=== PATIENT | male | born 1985 | race Caucasian/White ===

== ENCOUNTER 2017-04-20 22:34 | Emergency (ER) | payer BC ==
--- NOTE | 2017-04-21 00:07 | ERPHSYRPT ---
- History of Present Illness Time Seen by Provider: 04/21/17 00:00 Source: patient Exam Limitations: no limitations Patient Subjective Stated Complaint: Pt sts fever since Monday night with fever , dizziness, nausea. Sts decreased appetite. Took ibuprofen for COWAN approx 1800 tonight. Denies V/D. Sts COWAN is worst when he wakes up, able to control with ibuprofen at home. Pt drove self here. COWAN worse with lights. Triage Nursing Assessment: Pt alert, oriented, answers all questions appropriately. Skin p/w/d, resps non-labored. Pt ambulatory to tx room, steady gait noted. Lung sounds CTA bilat non-labored. ABD SNT x 4 quadrants, + bowel sounds noted. Heart RRR. Physician History: Pt. states fever for past 3 days, felt hot but does not know what temp. States he has been having fever, chills, headache, nausea, but no V/D, cough, sore throat, nasal congestion or ear ache. States feels achy "all the time," decrease energy and dizziness. Denies any recent exposure to any illnesses. 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 States takes Ibuprofen 800mg for symptoms. Timing/Duration: day(s) (3) Fever Severity: moderate Fever Therapy BIRTHING NURSE: Ibuprofen Associated Symptoms: headache, muscle aches, nausea/vomiting, weakness, No abdominal pain, No chest pain, No confusion, No cough, No rash, No shortness of breath, No sore throat, No stiff neck Allergies/Adverse Reactions: Sulfa (Sulfonamide Antibiotics) Allergy (Verified 04/20/17 23:49) Home Medications: Escitalopram Oxalate [Lexapro] 20 mg PO DAILY 04/20/17 [History] Testosterone Cypionate 200 mg IM Q14D 04/20/17 [History] Immunizations Up to Date: Yes - Review of Systems Constitutional: Chills, Fatigue, Malaise, Weakness Eyes: No Symptoms Ears, Nose, & Throat: No Symptoms Respiratory: No Cough, No Dyspnea Cardiac: No Chest Pain, No Edema, No Syncope Abdominal/Gastrointestinal: No Abdominal Pain, No Nausea, No Vomiting, No Diarrhea Genitourinary Symptoms: No Dysuria Musculoskeletal: Myalgias, No Back Pain, No Neck Pain Skin: No Rash Neurological: No Dizziness, No Focal Weakness, No Sensory Changes Psychological: No Symptoms Endocrine: No Symptoms All Other Systems: Reviewed and Negative - Past Medical History Pertinent Past Medical History: Yes Psycho-Social History: Depression Other Medical History: low testosterone - Past Surgical History Past Surgical History: Yes Other Surgical History: hemorrhoidectomy - Social History Smoking Status: Never smoker Exposure to second hand smoke: No Patient Lives Alone: Yes - Nursing Vital Signs Nursing Vital Signs: Initial Vital Signs Temperature 99.2 F 04/20/17 23:41 Pulse Rate 105 H 04/20/17 23:41 Respiratory Rate 16 04/20/17 23:41 Blood Pressure 126/77 04/20/17 23:41 O2 Sat by Pulse Oximetry 99 04/20/17 23:41 Pain Scale Pain Intensity 5 - Physical Exam General Appearance: no apparent distress, alert Eye Exam: PERRL/EOMI ENT Exam: normal ENT inspection, No pharyngeal erythema, No tonsillar exudate Neck Exam: supple, full range of motion, No meningismus Respiratory Exam: normal breath sounds, lungs clear, no respiratory distress Cardiovascular/Chest Exam: normal heart sounds, regular rate/rhythm, No murmur, No edema Gastrointestinal/Abdominal Exam: soft, non tender, no distention Extremity Exam: non-tender, normal range of motion, normal inspection, normal capillary refill Neurologic Exam: alert, oriented x 3, cooperative, beverage host II-XII nml as tested, normal mood/affect, sensation nml, No motor deficits Skin Exam: normal color, warm, dry, No rash SpO2: 97 Oxygen Delivery: Room Air - Course Nursing assessment & vital signs reviewed: Yes Ordered Tests: Active Orders 24 hr Category Date Time Status CHEST 2 VIEWS (PA AND LAT) Stat Exams 04/21/17 00:10 Taken BMP Stat Lab 04/21/17 00:45 Completed CBC W DIFF Stat Lab 04/21/17 00:45 Completed Manual Differential NC Stat Lab 04/21/17 00:45 Completed Medication Summary Discontinued Medications Generic Name Dose Route Start Last Admin Trade Name Freq PRN Reason Stop Dose Admin Acetaminophen 975 mg 04/21/17 00:09 04/21/17 00:16 Tylenol 325 Mg PO 04/21/17 00:10 975 mg STAT STA Administration Acetaminophen Confirm 04/21/17 00:15 Tylenol 325 Mg Administered 04/21/17 00:16 Dose 975 mg .ROUTE .[employer] Lab/Rad Data: Laboratory Result Diagrams 04/21/17 00:45 04/21/17 00:45 Laboratory Results 04/21/17 04/21/17 Range/Units 00:45 00:45 WBC 10.7 H (4.0-10.5) K/mm3 RBC 4.21 (4.1-5.6) M/mm3 Hgb 12.2 L (12.5-18.0) gm/dl Hct 36.5 L (42-50) % MCV 86.7 (78-100) fl MCH 28.9 (26-32) pg MCHC 33.4 (32-36) g/dl RDW 14.2 H (11.5-14.0) % Plt Count 136 L (150-450) K/mm3 MPV 9.9 H (6-9.5) fl Sodium 139 (136-145) mEq/L Potassium 3.8 (3.5-5.1) mEq/L Chloride 104 (98-107) mEq/L Carbon Dioxide 25.8 (21-32) mEq/L Anion Gap 13.1 (5-15) MEQ/L BUN 9 (9-20) mg/dL Creatinine 1.38 H (0.55-1.30) mg/dl Estimated GFR > 60 ML/MIN Glucose 103 (70-110) MG/DL Calcium 8.0 L (8.5-10.1) mg/dL - Progress Progress: improved Progress Note: 04/21/17 00:09 Pt. given Tylenol for fever Counseled pt/family regarding: diagnosis, rad results - Departure Time of Disposition: 01:15 Departure Disposition: Home Clinical Impression: Fever, Viral syndrome Condition: Stable Critical Care Time: No Referrals: LITA HAMEED NP [Primary Care Provider] - Instructions: Fever (Symptom) -- Adult Additional Instructions: May alternate Tylenol and Motrin for fever Return for worse fever, headache, vomiting or any problems
[2017-04-21] MEDS ORDERED: TYLENOL 325 MG PO STA (00:09)
[2017-04-21] MEDS ORDERED: TYLENOL 325 MG ONE (00:15)
[2017-04-21 00:52] LABS: Mean Cell Volume 86.7 fl (78-100); Mean Platelet Volume 9.9 fl (6-9.5); Platelet Count 136 K/mm3 (150-450); Red Blood Count 4.21 M/mm3 (4.1-5.6); Red Cell Distribution Width 14.2 % (11.5-14.0); White Blood Count 10.7 K/mm3 (4.0-10.5)
[2017-04-21 00:56] LABS: Mean Corpuscular Hemoglobin 28.9 pg (26-32)
[2017-04-21 01:01] VITALS: PULSE 90
[2017-04-21 01:07] LABS: ANION GAP 13.1 MEQ/L (5-15); BLOOD UREA NITROGEN 9 mg/dL (9-20); CHLORIDE 104 mEq/L (98-107); Carbon Dioxide 25.8 mEq/L (21-32); Glucose 103 MG/DL (70-110); Potassium 3.8 mEq/L (3.5-5.1); SODIUM 139 mEq/L (136-145)
[2017-04-21 01:23] VITALS: BP 113/73; O2SAT 98
[2017-04-21 02:19] LABS: Eosinophil 1 % (0.00-3.0); Platelet Estimate NORMAL (NORMAL); Total Cells Counted 100
--- NOTE | 2017-04-21 09:25 | XRAY ---
Indication: Fever. Comparison: None PA/lateral chest demonstrates normal heart, lungs, and bony thorax.
== END 2017-04-21 01:23 | disposition home or self-care (01) ==
LOC: ED 22:34
DX: R50.9 Fever, unspecified (principal); B34.9 Viral infection, unspecified
CPT/HCPCS: 36415; 71020; 80048; 85025; 87631; 99283; A9270-GY

== ENCOUNTER 2018-11-28 10:39 | Observation (INO) | payer BC ==
[2018-11-28] MEDS ORDERED: Pepcid 20 MG VIAL IV ONE ×2 (10:55→11:07)
[2018-11-28] MEDS ORDERED: Zofran 4 MG/2 ML VIAL IV ONE (10:55)
[2018-11-28] MEDS ORDERED: Sodium Chloride 0.9% 1000 ML 1,000 ML IV STA (10:55)
--- NOTE | 2018-11-28 11:02 | ERPHSYRPT ---
- History of Present Illness Time Seen by Provider: 11/28/18 10:55 Historian: patient Exam Limitations: no limitations Patient Subjective Stated Complaint: pain in upper epigastric region and on the left lateral side/back Triage Nursing Assessment: Pt states that for the past 1.5-2 weeks he has been having pain in his abdomen in the mid upper epigastric region and also on the left lateral side/back, last vomited on Monday, last BM this AM, bowel sounds heard in all 4 quadrants, pain with palpatation in upper quadrants and left lateral side, reports that he always has stomach issues, hx of kidney stones and reports stones are still in his kidneys, rates pain 09/13 at this time, last intake yesterday evening Physician History: Pt has been c/o constipation, upper abdominal pain nx 1.5-2 weeks, nauseated, but denies vomiting, he had a small, hard stool today, with a little bit blood ( blames hemorrhoids), no vomiting, urinary complaints, no cough, cold symptoms , fever, chills or other complaints. He went to [facility] today, but was sent here. Timing/Duration: week(s) (1.5-2) Activities at Onset: none Quality: fullness, pressure Abdominal Pain Onset Location: RUQ, LUQ, epigastric Pain Radiation: back Severity of Pain-Max: mild Severity of Pain-Current: mild Modifying Factors: Improves With: eating Associated Symptoms: loss of appetite, nausea Previous symptoms: no prior history Allergies/Adverse Reactions: Sulfa (Sulfonamide Antibiotics) Allergy (Verified 11/28/18 10:54) Home Medications: Escitalopram Oxalate [Lexapro] 20 mg PO DAILY 04/20/17 [History] - Review of Systems Constitutional: No Symptoms Ears, Nose, & Throat: No Symptoms Respiratory: No Symptoms Cardiac: No Symptoms Abdominal/Gastrointestinal: Abdominal Pain, Nausea, Constipation, No Hematemesis Genitourinary Symptoms: No Symptoms Skin: No Symptoms All Other Systems: Reviewed and Negative - Past Medical History Pertinent Past Medical History: Yes Psycho-Social History: Depression Other Medical History: low testosterone, kidney stones - Past Surgical History Past Surgical History: Yes Other Surgical History: hemorrhoidectomy - Social History Smoking Status: Never smoker Exposure to second hand smoke: No Drug Use: none Patient Lives Alone: Yes - Nursing Vital Signs Nursing Vital Signs: Initial Vital Signs Temperature 98.7 F 11/28/18 10:43 Pulse Rate 68 11/28/18 10:43 Respiratory Rate 16 11/28/18 10:43 Blood Pressure 142/89 11/28/18 10:43 O2 Sat by Pulse Oximetry 100 11/28/18 10:43 Pain Scale Pain Intensity 0 - Physical Exam General Appearance: no apparent distress Eye Exam: eyes nml inspection Ears, Nose, Throat Exam: normal ENT inspection, pharynx normal, moist mucous membranes Neck Exam: normal inspection, non-tender, supple, No mass Respiratory Exam: normal breath sounds, lungs clear Cardiovascular Exam: regular rate/rhythm, normal heart sounds, normal peripheral pulses, No murmur Gastrointestinal/Abdomen Exam: soft, normal bowel sounds, tenderness (mild, diffuse upper), No distention, No guarding, No pulsatile mass, No rebound, No hernia, No organomegaly Back Exam: normal inspection, No CVA tenderness Extremity Exam: normal inspection Neurologic Exam: alert, oriented x 3, cooperative, normal mood/affect Skin Exam: normal color, warm, dry, No rash Lymphatic Exam: No adenopathy SpO2 Interpretation: normal SpO2: 100 O2 Delivery: Room Air - Course Nursing assessment & vital signs reviewed: Yes EKG Interpreted by Me: RATE, Sinus Rhythm, NORMAL AXIS, NORMAL INTERVALS, NORMAL QRS, NORMAL ST-T - CT Exams Abdomen/Pelvis CT Interpretation: Tele-radiologist Report (hepatosplenomegaly, small pelvic fluid) Ordered Tests: Active Orders 24 hr Category Date Time Status EKG-ER Only STAT Care 11/28/18 10:55 Active IV Insertion STAT Care 11/28/18 10:55 Active ABDOMEN AND PELVIS W CONTRAST [CT] Stat Exams 11/28/18 10:56 Completed CBC W DIFF Stat Lab 11/28/18 11:07 Completed CMP Stat Lab 11/28/18 11:07 Completed LIPASE Stat Lab 11/28/18 11:07 Completed Manual Differential NC Stat Lab 11/28/18 11:07 Completed [place] Screen Stat Lab 11/28/18 11:07 Completed PROTIME WITH INR Stat Lab 11/28/18 11:07 Completed TROPONIN Q3H Lab 11/28/18 11:07 Completed TROPONIN Q3H Lab 11/28/18 14:00 Ordered TROPONIN Q3H Lab 11/28/18 17:00 Ordered TROPONIN Q3H Lab 11/28/18 20:00 Ordered TROPONIN Q3H Lab 11/28/18 23:00 Ordered UA W/RFX UR CULTURE Stat Lab 11/28/18 12:25 Completed Urine Triage Profile Stat Lab 11/28/18 12:25 Received Medication Summary Discontinued Medications Generic Name Dose Route Start Last Admin Trade Name Darenq PRN Reason Stop Dose Admin Famotidine 20 mg 11/28/18 10:55 11/28/18 11:09 Pepcid 20 Mg Vial IV 11/28/18 10:56 20 mg STAT ONE Administration Famotidine Confirm 11/28/18 11:07 Pepcid 20 Mg Vial Administered 11/28/18 11:08 Dose 20 mg IV .STK-MED ONE Sodium Chloride 1,000 mls @ 999 mls/hr 11/28/18 10:55 11/28/18 12:42 Sodium Chloride 0.9% 1000 Ml IV 11/28/18 11:55 Infused .Q1H1M STA Infusion Sodium Chloride Confirm 11/28/18 11:07 Sodium Chloride 0.9% 1000 Ml Administered 11/28/18 11:08 Dose 1,000 mls @ ud .ROUTE .STK-MED ONE Ondansetron HCl 4 mg 11/28/18 10:55 11/28/18 11:08 Zofran 4 Mg/2 Ml Vial IV 11/28/18 10:56 4 mg STAT ONE Administration Ondansetron HCl Confirm 11/28/18 11:07 Zofran 4 Mg/2 Ml Vial Administered 11/28/18 11:08 Dose 4 mg .ROUTE .STK-MED ONE Lab/Rad Data: Laboratory Result Diagrams 11/28/18 11:07 11/28/18 11:07 Laboratory Results 11/28/18 11/28/18 11/28/18 Range/Units 12:25 11:07 11:07 WBC (4.0-10.5) K/mm3 RBC (4.1-5.6) M/mm3 Hgb (12.5-18.0) gm/dl Hct (42-50) % MCV (78-100) fl MCH (26-32) pg MCHC (32-36) g/dl RDW (11.5-14.0) % Plt Count (150-450) K/mm3 MPV (6-9.5) fl Absolute Neutrophils (1.4-6.9) Segmented Neutrophils (36.-66.) % Lymphocytes (Manual) (24-44) % Monocytes (Manual) (0.0-12.0) % Eosinophils (Manual) (0.00-3.0) % Atypical Lymphocytes % PT (8.83-12.87) SECONDS INR (0.8-3.0) Sodium (137-145) mmol/L Potassium (3.5-5.1) mmol/L Chloride (98-107) mmol/L Carbon Dioxide (22-30) mmol/L Anion Gap (5-15) MEQ/L BUN (9-20) mg/dL Creatinine (0.66-1.25) mg/dL Estimated GFR ML/MIN Glucose (74-106) mg/dL Calcium (8.4-10.2) mg/dL Total Bilirubin (0.2-1.3) mg/dL AST (17-59) U/L ALT (0-50) U/L Alkaline Phosphatase (38-126) U/L Troponin I < 0.012 (0.000-0.034) ng/mL Serum Total Protein (6.3-8.2) g/dL Albumin (3.5-5.0) g/dL Lipase (23-300) U/L Urine Color DARK YELLOW (YELLOW) Urine Appearance CLEAR (CLEAR) Urine pH 6.0 (5-6) Ur Specific Belcher 1.019 (1.005-1.025) Urine Protein NEGATIVE (Negative) Urine Ketones NEGATIVE (NEGATIVE) Urine Blood NEGATIVE (0-5) Cecil/ul Urine Nitrite NEGATIVE (NEGATIVE) Urine Bilirubin NEGATIVE (NEGATIVE) Urine Urobilinogen 4 (0-1) mg/dL Ur Leukocyte Esterase NEGATIVE (NEGATIVE) Urine WBC (Auto) 0-2 (0-5) /HPF Urine RBC (Auto) NONE (0-2) /HPF U Epithel Cells (Auto) RARE (FEW) /HPF Urine Bacteria (Auto) NONE SEEN (NEGATIVE) /HPF Urine Mucus (Auto) SLIGHT (NEGATIVE) /HPF Urine Culture Reflexed NO (NO) Urine Glucose NEGATIVE (NEGATIVE) mg/dL Monoscreen POSITIVE (Negative) Slides for Path Review 11/28/18 11/28/18 11/28/18 Range/Units 11:07 11:07 11:07 WBC 14.8 H (4.0-10.5) K/mm3 RBC 4.51 (4.1-5.6) M/mm3 Hgb 13.0 (12.5-18.0) gm/dl Hct 39.7 L (42-50) % MCV 88.0 (78-100) fl MCH 28.8 (26-32) pg MCHC 32.7 (32-36) g/dl RDW 13.9 (11.5-14.0) % Plt Count 148 L (150-450) K/mm3 MPV 10.2 H (6-9.5) fl Absolute Neutrophils 2.2 (1.4-6.9) Segmented Neutrophils 15 L (36.-66.) % Lymphocytes (Manual) 38 (24-44) % Monocytes (Manual) 4 (0.0-12.0) % Eosinophils (Manual) 1 (0.00-3.0) % Atypical Lymphocytes 42 % PT 11.7 (8.83-12.87) SECONDS INR 1.01 (0.8-3.0) Sodium 140 (137-145) mmol/L Potassium 4.2 (3.5-5.1) mmol/L Chloride 105 (98-107) mmol/L Carbon Dioxide 27 (22-30) mmol/L Anion Gap 12.8 (5-15) MEQ/L BUN 9 (9-20) mg/dL Creatinine 1.07 (0.66-1.25) mg/dL Estimated GFR > 60.0 ML/MIN Glucose 101 (74-106) mg/dL Calcium 8.9 (8.4-10.2) mg/dL Total Bilirubin 3.70 H (0.2-1.3) mg/dL AST 241 H (17-59) U/L ALT 550 H (0-50) U/L Alkaline Phosphatase 216 H (38-126) U/L Troponin I (0.000-0.034) ng/mL Serum Total Protein 8.2 (6.3-8.2) g/dL Albumin 4.2 (3.5-5.0) g/dL Lipase 332 H (23-300) U/L Urine Color (YELLOW) Urine Appearance (CLEAR) Urine pH (5-6) Ur Specific Belcher (1.005-1.025) Urine Protein (Negative) Urine Ketones (NEGATIVE) Urine Blood (0-5) Cecil/ul Urine Nitrite (NEGATIVE) Urine Bilirubin (NEGATIVE) Urine Urobilinogen (0-1) mg/dL Ur Leukocyte Esterase (NEGATIVE) Urine WBC (Auto) (0-5) /HPF Urine RBC (Auto) (0-2) /HPF U Epithel Cells (Auto) (FEW) /HPF Urine Bacteria (Auto) (NEGATIVE) /HPF Urine Mucus (Auto) (NEGATIVE) /HPF Urine Culture Reflexed (NO) Urine Glucose (NEGATIVE) mg/dL Monoscreen (Negative) Slides for Path Review YES - Progress Progress: unchanged Progress Note: 11/28/18 13:[address] Rae, covering Dr Stein, discussed this patient's findings and his current condition, she agreed to admit him for observation and further workup, patient was informed, and agreed. Discussed with .: Kyra Will see patient in: hospital (observation) Counseled pt/family regarding: lab results, diagnosis, rad results - Departure Time of Disposition: 13:03 Departure Disposition: Observation Clinical Impression: Elevated liver enzymes Abdominal pain Qualifiers: Abdominal location: right upper quadrant Qualified Code(s): R10.11 - Right upper quadrant pain Condition: Stable Critical Care Time: No Referrals: LITA HAMEED NP [Primary Care Provider] -
[2018-11-28] MEDS ORDERED: Zofran 4 MG/2 ML VIAL ONE (11:07)
[2018-11-28] MEDS ORDERED: Sodium Chloride 0.9% 1000 ML 1,000 ML ONE (11:07)
[2018-11-28 11:17] LABS: Hematocrit 39.7 % (42-50); Mean Corpuscular Hemoglobin 28.8 pg (26-32); Mean Corpuscular Hgb Concent. 32.7 g/dl (32-36); Mean Platelet Volume 10.2 fl (6-9.5); Platelet Count 148 K/mm3 (150-450); Red Blood Count 4.51 M/mm3 (4.1-5.6); Red Cell Distribution Width 13.9 % (11.5-14.0); White Blood Count 14.8 K/mm3 (4.0-10.5)
[2018-11-28 11:27] LABS: INR 1.01 (0.8-3.0); PROTIME 11.7 SECONDS (8.83-12.87)
[2018-11-28 11:40] LABS: ALBUMIN 4.2 g/dL (3.5-5.0); ALKALINE PHOSPHATASE 216 U/L (38-126); ANION GAP 12.8 MEQ/L (5-15); BLOOD UREA NITROGEN 9 mg/dL (9-20); CHLORIDE 105 mmol/L (98-107); Calcium 8.9 mg/dL (8.4-10.2); Carbon Dioxide 27 mmol/L (22-30); Creatinine 1 1.07 mg/dL (0.66-1.25); Glucose 101 mg/dL (74-106); LIPASE 332 U/L (23-300); Potassium 4.2 mmol/L (3.5-5.1); SGOT/AST 241 U/L (17-59); SGPT/ALT 550 U/L (0-50); SODIUM 140 mmol/L (137-145); Total Protein 8.2 g/dL (6.3-8.2)
--- NOTE | 2018-11-28 12:05 | XRAY ---
Indication: Epigastric pain. Chronic nausea. Multiple contiguous axial images obtained through the abdomen and pelvis Comparison: None Lung bases demonstrates minimal bibasilar dependent atelectasis. No infiltrate or effusion. Heart is not enlarged. Noncontrasted stomach and bowel loops appear nonobstructed. Normal appendix. Scattered small subcentimeter mesenteric nodes, possible adenitis. Additional small subcentimeter periaortic nodes. No pathologic retroperitoneal lymphadenopathy. Spleen is enlarged measuring 18 cm in greatest axial dimension. Diffuse fatty hepatomegaly measuring 22.5 cm in CC dimension. Tiny pelvic free fluid. No walled off fluid collection or free air Remaining liver, gallbladder, pancreas, spleen, adrenal glands, kidneys, ureters, bladder, and aorta appear unremarkable for noncontrast exam. Osseous structures intact. No ventral or inguinal hernias. Impression: 1. Scattered small mesenteric nodes, possible mesenteric adenitis. 2. Hepatosplenomegaly and fatty liver. 3. Nonspecific tiny pelvic free fluid. 4. Remaining CT abdomen/pelvis with contrast exam is negative. CT DI 23.23
[2018-11-28 12:20] LABS: ABSOLUTE NEUTROPHILS 2.2 (1.4-6.9); ATYPICAL LYMPHS 42 %; Eosinophil 1 % (0.00-3.0); Lymphocytes 38 % (24-44); Monocyte 4 % (0.0-12.0); Neutrophils 15 % (36.-66.); Total Cells Counted 100
[2018-11-28 12:22] LABS: Slide Review 1 YES
[2018-11-28 12:43] LABS: Appearance CLEAR (CLEAR); Bilirubin NEGATIVE (NEGATIVE); Blood NEGATIVE Ery/ul (0-5); Glucose NEGATIVE (NEGATIVE); Ketones NEGATIVE (NEGATIVE); Leukocyte Esterase NEGATIVE (NEGATIVE); Mucus SLIGHT /HPF (NEGATIVE); Nitrite NEGATIVE (NEGATIVE); Protein,Urine Dip NEGATIVE (Negative); Specific Gravity 1.019 (1.005-1.025); Urobilinogen 4 mg/dL (0-1); WBC 0-2 /HPF (0-5)
[2018-11-28 12:44] LABS: Bacteria NONE SEEN /HPF (NEGATIVE); Epithelial Cells RARE /HPF (FEW)
[2018-11-28 13:05] LABS: Amphetamine,Urine NEGATIVE (NEGATIVE); Barbiturate,Urine NEGATIVE (NEGATIVE); Benzodiazepine,Urine NEGATIVE (NEGATIVE); Cocaine,Urine NEGATIVE (NEGATIVE); Methadone,Urine NEGATIVE (NEGATIVE); Opiate,Urine NEGATIVE (NEGATIVE); PCP,Urine NEGATIVE (NEGATIVE); THC,Urine NEGATIVE (NEGATIVE)
[2018-11-28] MEDS ORDERED: MOTRIN 600 MG PO PRN (21:15)
[2018-11-28] MEDS ORDERED: Zofran 4 MG/2 ML VIAL IV PRN (21:16)
[2018-11-28] MEDS ORDERED: Lexapro 10 MG PO SCH (22:00)
[2018-11-28] MEDS ORDERED: NON-FORMULARY ITEM (Escitalopram Oxalate [Lexapro] 20 MG) PO SCH (22:00)
[2018-11-29] MEDS ORDERED: MOTRIN 600 MG PO PRN (06:56)
[2018-11-29 07:49] LABS: Hematocrit 39.5 % (42-50); Hemoglobin 12.8 gm/dl (12.5-18.0); Mean Cell Volume 89.6 fl (78-100); Mean Corpuscular Hgb Concent. 32.4 g/dl (32-36); Mean Platelet Volume 10.2 fl (6-9.5); Platelet Count 129 K/mm3 (150-450); Red Blood Count 4.41 M/mm3 (4.1-5.6); White Blood Count 10.4 K/mm3 (4.0-10.5)
[2018-11-29 08:02] LABS: ALBUMIN 3.7 g/dL (3.5-5.0); ALKALINE PHOSPHATASE 196 U/L (38-126); ANION GAP 12.2 MEQ/L (5-15); BLOOD UREA NITROGEN 9 mg/dL (9-20); CHLORIDE 104 mmol/L (98-107); Calcium 8.6 mg/dL (8.4-10.2); Carbon Dioxide 28 mmol/L (22-30); Creatinine 1 1.19 mg/dL (0.66-1.25); Glucose 102 mg/dL (74-106); Potassium 4.5 mmol/L (3.5-5.1); SGOT/AST 215 U/L (17-59); SGPT/ALT 508 U/L (0-50); SODIUM 140 mmol/L (137-145); Total Protein 7.6 g/dL (6.3-8.2)
[2018-11-29 08:57] LABS: ATYPICAL LYMPHS 4 %; Eosinophil 1 % (0.00-3.0); Lymphocytes 67 % (24-44); Metamyelocyte 3 %; Monocyte 1 % (0.0-12.0); Neutrophils 24 % (36.-66.); Platelet Estimate NORMAL (NORMAL); Total Cells Counted 100
--- NOTE | 2018-11-29 09:02 | PCM.HP ---
History of Present Illness - Chief Complaint Chief Complaint: elevated liver enzymes History of Present Illness: is a 33 year old male pt of Dr. Stein who came to ER complaining of abd pain. Was found to be mono + and have elevated LFTs. Ct nonacute, showed fatty liver. Recent GB u/s with polyp, no stones. He had been having abd pain for 2 weeks, epigastric, 8/10. some pain in L lower back. For 1 week fever up to 102.5 and night sweats. 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 Had 1 episode of vomiting 5d ago - did not help his pain. Decreased appetite and nausea. went 5d without BM, then had a BM yesterday morning. This morning, he does not feel nauseated. Pain is more in LUQ and RUQ this morning, R>L. Has L sided sharp pain on deep inspiration. - Review of Systems Constitutional: Fever, Chills, Night Sweats Abdominal/Gastrointestinal: Abdominal Pain, Nausea, Hematochezia (has hemorrhoids), Appetite Changes Genitourinary Symptoms: Dysuria (recently; in Oct had neg gonorrhea/chlamydia) Musculoskeletal: Back Pain Neurological: Dizziness Psychological: Anxiety, Depression, No Suicidal Ideations All Other Systems: Reviewed and Negative Medications & Allergies Home Medications: Home Medication List Escitalopram Oxalate [Lexapro] 20 mg PO HS 04/20/17 [History Confirmed 11/28/18] Allergies/Adverse Reactions: Allergies Allergy/AdvReac Type Severity Reaction Status Date / Time Sulfa (Sulfonamide Allergy unknown Verified 11/28/18 13:19 Antibiotics) - Past Medical History Past Medical History: Yes Neurological History: No Pertinent History ENT History: No Pertinent History Cardiac History: No Pertinent History Respiratory History: No Pertinent History Endocrine Medical History: No Pertinent History Musculoskelatal History: No Pertinent History GI Medical History: No Pertinent History History: No Pertinent History Pyscho-Social History: Anxiety, Depression Male Reproductive Disorders: No Pertinent History Comment: low testosterone, kidney stones - Past Surgical History Past Surgical History: Yes Neuro Surgical History: No Pertinent History Cardiac History: No Pertinent History Respiratory Surgery: No Pertinent History GI Surgical History: No Pertinent History Genitourinary Surgical Hx: No Pertinent History Musculskeletal Surgical Hx: No Pertinent History Male Surgical History: No Pertinent History Other Surgical History: hemorrhoidectomy - Social History Smoking Status: Never smoker Exposure to second hand smoke: No Alcohol: Occasionally Drug Use: none - Physical Exam Vital Signs: Vital Signs - 24 hr Temp Pulse Resp BP Pulse Ox 11/29/18 06:57 98.4 F 77 18 91/50 95 11/29/18 04:00 97.6 F 56 L 18 104/61 96 11/28/18 23:46 98.4 F 73 17 103/59 97 11/28/18 19:59 98.8 F 75 17 111/75 96 11/28/18 16:00 98.3 F 72 18 112/71 97 11/28/18 13:19 98.6 F 75 20 123/83 100 11/28/18 13:04 100 11/28/18 12:56 97.8 F 77 16 116/86 97 11/28/18 12:02 97.6 F 65 18 111/77 98 11/28/18 11:42 98.6 F 70 16 138/86 98 11/28/18 10:43 98.7 F 68 16 142/89 100 General Appearance: no apparent distress, alert Neurologic Exam: oriented x 3, cooperative Eye Exam: eyes nml inspection Ears, Nose, Throat Exam: moist mucous membranes Neck Exam: normal inspection, non-tender, No lymphadenopathy Respiratory Exam: normal breath sounds, lungs clear, No crackles/rales, No rhonchi, No wheezing Cardiovascular Exam: regular rate/rhythm, normal heart sounds, No murmur Gastrointestinal/Abdomen Exam: soft, normal bowel sounds, tenderness (some diffuse tenderness, but particularly in epigastrum and RUQ), No distention, No mass, No guarding, No rebound Extremity Exam: normal inspection, No pedal edema, No swelling Skin Exam: normal color, warm, dry, No rash Results - Labs Lab/Micro Results: Lab Results-Last 24 Hours 11/28/18 11/28/18 11/28/18 Range/Units 11:07 11:07 11:07 WBC 14.8 H (4.0-10.5) K/mm3 RBC 4.51 (4.1-5.6) M/mm3 Hgb 13.0 (12.5-18.0) gm/dl Hct 39.7 L (42-50) % MCV 88.0 (78-100) fl MCH 28.8 (26-32) pg MCHC 32.7 (32-36) g/dl RDW 13.9 (11.5-14.0) % Plt Count 148 L (150-450) K/mm3 MPV 10.2 H (6-9.5) fl Absolute Neutrophils 2.2 (1.4-6.9) Segmented Neutrophils 15 L (36.-66.) % Lymphocytes (Manual) 38 (24-44) % Monocytes (Manual) 4 (0.0-12.0) % Eosinophils (Manual) 1 (0.00-3.0) % Atypical Lymphocytes 42 % PT 11.7 (8.83-12.87) SECONDS INR 1.01 (0.8-3.0) Sodium 140 (137-145) mmol/L Potassium 4.2 (3.5-5.1) mmol/L Chloride 105 (98-107) mmol/L Carbon Dioxide 27 (22-30) mmol/L Anion Gap 12.8 (5-15) MEQ/L BUN 9 (9-20) mg/dL Creatinine 1.07 (0.66-1.25) mg/dL Estimated GFR > 60.0 ML/MIN Glucose 101 (74-106) mg/dL Calcium 8.9 (8.4-10.2) mg/dL Total Bilirubin 3.70 H (0.2-1.3) mg/dL AST 241 H (17-59) U/L ALT 550 H (0-50) U/L Alkaline Phosphatase 216 H (38-126) U/L Troponin I (0.000-0.034) ng/mL Serum Total Protein 8.2 (6.3-8.2) g/dL Albumin 4.2 (3.5-5.0) g/dL Lipase 332 H (23-300) U/L Urine Color (YELLOW) Urine Appearance (CLEAR) Urine pH (5-6) Ur Specific [place] (1.005-1.025) Urine Protein (Negative) Urine Ketones (NEGATIVE) Urine Blood (0-5) Cecil/ul Urine Nitrite (NEGATIVE) Urine Bilirubin (NEGATIVE) Urine Urobilinogen (0-1) mg/dL Ur Leukocyte Esterase (NEGATIVE) Urine WBC (Auto) (0-5) /HPF Urine RBC (Auto) (0-2) /HPF U Epithel Cells (Auto) (FEW) /HPF Urine Bacteria (Auto) (NEGATIVE) /HPF Urine Mucus (Auto) (NEGATIVE) /HPF Urine Culture Reflexed (NO) Urine Glucose (NEGATIVE) mg/dL Urine Opiates Level (NEGATIVE) Ur Methadone (NEGATIVE) Urine Barbiturates (NEGATIVE) Ur Phencyclidine (PCP) (NEGATIVE) Urine Amphetamine (NEGATIVE) U Benzodiazepine Level (NEGATIVE) Urine Cocaine (NEGATIVE) Urine Marijuana (THC) (NEGATIVE) Monoscreen (Negative) Slides for Path Review YES 11/28/18 11/28/18 11/28/18 Range/Units 11:07 11:07 12:25 WBC (4.0-10.5) K/mm3 RBC (4.1-5.6) M/mm3 Hgb (12.5-18.0) gm/dl Hct (42-50) % MCV (78-100) fl MCH (26-32) pg MCHC (32-36) g/dl RDW (11.5-14.0) % Plt Count (150-450) K/mm3 MPV (6-9.5) fl Absolute Neutrophils (1.4-6.9) Segmented Neutrophils (36.-66.) % Lymphocytes (Manual) (24-44) % Monocytes (Manual) (0.0-12.0) % Eosinophils (Manual) (0.00-3.0) % Atypical Lymphocytes % PT (8.83-12.87) SECONDS INR (0.8-3.0) Sodium (137-145) mmol/L Potassium (3.5-5.1) mmol/L Chloride (98-107) mmol/L Carbon Dioxide (22-30) mmol/L Anion Gap (5-15) MEQ/L BUN (9-20) mg/dL Creatinine (0.66-1.25) mg/dL Estimated GFR ML/MIN Glucose (74-106) mg/dL Calcium (8.4-10.2) mg/dL Total Bilirubin (0.2-1.3) mg/dL AST (17-59) U/L ALT (0-50) U/L Alkaline Phosphatase (38-126) U/L Troponin I < 0.012 (0.000-0.034) ng/mL Serum Total Protein (6.3-8.2) g/dL Albumin (3.5-5.0) g/dL Lipase (23-300) U/L Urine Color DARK YELLOW (YELLOW) Urine Appearance CLEAR (CLEAR) Urine pH 6.0 (5-6) Ur Specific [place] 1.019 (1.005-1.025) Urine Protein NEGATIVE (Negative) Urine Ketones NEGATIVE (NEGATIVE) Urine Blood NEGATIVE (0-5) Cecil/ul Urine Nitrite NEGATIVE (NEGATIVE) Urine Bilirubin NEGATIVE (NEGATIVE) Urine Urobilinogen 4 (0-1) mg/dL Ur Leukocyte Esterase NEGATIVE (NEGATIVE) Urine WBC (Auto) 0-2 (0-5) /HPF Urine RBC (Auto) NONE (0-2) /HPF U Epithel Cells (Auto) RARE (FEW) /HPF Urine Bacteria (Auto) NONE SEEN (NEGATIVE) /HPF Urine Mucus (Auto) SLIGHT (NEGATIVE) /HPF Urine Culture Reflexed NO (NO) Urine Glucose NEGATIVE (NEGATIVE) mg/dL Urine Opiates Level (NEGATIVE) Ur Methadone (NEGATIVE) Urine Barbiturates (NEGATIVE) Ur Phencyclidine (PCP) (NEGATIVE) Urine Amphetamine (NEGATIVE) U Benzodiazepine Level (NEGATIVE) Urine Cocaine (NEGATIVE) Urine Marijuana (THC) (NEGATIVE) Monoscreen POSITIVE (Negative) Slides for Path Review 11/28/18 11/28/18 11/28/18 Range/Units 12:25 14:45 17:05 WBC (4.0-10.5) K/mm3 RBC (4.1-5.6) M/mm3 Hgb (12.5-18.0) gm/dl Hct (42-50) % MCV (78-100) fl MCH (26-32) pg MCHC (32-36) g/dl RDW (11.5-14.0) % Plt Count (150-450) K/mm3 MPV (6-9.5) fl Absolute Neutrophils (1.4-6.9) Segmented Neutrophils (36.-66.) % Lymphocytes (Manual) (24-44) % Monocytes (Manual) (0.0-12.0) % Eosinophils (Manual) (0.00-3.0) % Atypical Lymphocytes % PT (8.83-12.87) SECONDS INR (0.8-3.0) Sodium (137-145) mmol/L Potassium (3.5-5.1) mmol/L Chloride (98-107) mmol/L Carbon Dioxide (22-30) mmol/L Anion Gap (5-15) MEQ/L BUN (9-20) mg/dL Creatinine (0.66-1.25) mg/dL Estimated GFR ML/MIN Glucose (74-106) mg/dL Calcium (8.4-10.2) mg/dL Total Bilirubin (0.2-1.3) mg/dL AST (17-59) U/L ALT (0-50) U/L Alkaline Phosphatase (38-126) U/L Troponin I < 0.012 < 0.012 (0.000-0.034) ng/mL Serum Total Protein (6.3-8.2) g/dL Albumin (3.5-5.0) g/dL Lipase (23-300) U/L Urine Color (YELLOW) Urine Appearance (CLEAR) Urine pH (5-6) Ur Specific [place] (1.005-1.025) Urine Protein (Negative) Urine Ketones (NEGATIVE) Urine Blood (0-5) Cecil/ul Urine Nitrite (NEGATIVE) Urine Bilirubin (NEGATIVE) Urine Urobilinogen (0-1) mg/dL Ur Leukocyte Esterase (NEGATIVE) Urine WBC (Auto) (0-5) /HPF Urine RBC (Auto) (0-2) /HPF U Epithel Cells (Auto) (FEW) /HPF Urine Bacteria (Auto) (NEGATIVE) /HPF Urine Mucus (Auto) (NEGATIVE) /HPF Urine Culture Reflexed (NO) Urine Glucose (NEGATIVE) mg/dL Urine Opiates Level NEGATIVE (NEGATIVE) Ur Methadone NEGATIVE (NEGATIVE) Urine Barbiturates NEGATIVE (NEGATIVE) Ur Phencyclidine (PCP) NEGATIVE (NEGATIVE) Urine Amphetamine NEGATIVE (NEGATIVE) U Benzodiazepine Level NEGATIVE (NEGATIVE) Urine Cocaine NEGATIVE (NEGATIVE) Urine Marijuana (THC) NEGATIVE (NEGATIVE) Monoscreen (Negative) Slides for Path Review 11/28/18 11/28/18 11/29/18 Range/Units 20:10 23:07 07:30 WBC 10.4 (4.0-10.5) K/mm3 RBC 4.41 (4.1-5.6) M/mm3 Hgb 12.8 (12.5-18.0) gm/dl Hct 39.5 L (42-50) % MCV 89.6 (78-100) fl MCH 29.0 (26-32) pg MCHC 32.4 (32-36) g/dl RDW 14.0 (11.5-14.0) % Plt Count 129 L (150-450) K/mm3 MPV 10.2 H (6-9.5) fl Absolute Neutrophils (1.4-6.9) Segmented Neutrophils (36.-66.) % Lymphocytes (Manual) (24-44) % Monocytes (Manual) (0.0-12.0) % Eosinophils (Manual) (0.00-3.0) % Atypical Lymphocytes % PT (8.83-12.87) SECONDS INR (0.8-3.0) Sodium (137-145) mmol/L Potassium (3.5-5.1) mmol/L Chloride (98-107) mmol/L Carbon Dioxide (22-30) mmol/L Anion Gap (5-15) MEQ/L BUN (9-20) mg/dL Creatinine (0.66-1.25) mg/dL Estimated GFR ML/MIN Glucose (74-106) mg/dL Calcium (8.4-10.2) mg/dL Total Bilirubin (0.2-1.3) mg/dL AST (17-59) U/L ALT (0-50) U/L Alkaline Phosphatase (38-126) U/L Troponin I < 0.012 < 0.012 (0.000-0.034) ng/mL Serum Total Protein (6.3-8.2) g/dL Albumin (3.5-5.0) g/dL Lipase (23-300) U/L Urine Color (YELLOW) Urine Appearance (CLEAR) Urine pH (5-6) Ur Specific [place] (1.005-1.025) Urine Protein (Negative) Urine Ketones (NEGATIVE) Urine Blood (0-5) Cecil/ul Urine Nitrite (NEGATIVE) Urine Bilirubin (NEGATIVE) Urine Urobilinogen (0-1) mg/dL Ur Leukocyte Esterase (NEGATIVE) Urine WBC (Auto) (0-5) /HPF Urine RBC (Auto) (0-2) /HPF U Epithel Cells (Auto) (FEW) /HPF Urine Bacteria (Auto) (NEGATIVE) /HPF Urine Mucus (Auto) (NEGATIVE) /HPF Urine Culture Reflexed (NO) Urine Glucose (NEGATIVE) mg/dL Urine Opiates Level (NEGATIVE) Ur Methadone (NEGATIVE) Urine Barbiturates (NEGATIVE) Ur Phencyclidine (PCP) (NEGATIVE) Urine Amphetamine (NEGATIVE) U Benzodiazepine Level (NEGATIVE) Urine Cocaine (NEGATIVE) Urine Marijuana (THC) (NEGATIVE) Monoscreen (Negative) Slides for Path Review 11/29/18 Range/Units 07:30 WBC (4.0-10.5) K/mm3 RBC (4.1-5.6) M/mm3 Hgb (12.5-18.0) gm/dl Hct (42-50) % MCV (78-100) fl MCH (26-32) pg MCHC (32-36) g/dl RDW (11.5-14.0) % Plt Count (150-450) K/mm3 MPV (6-9.5) fl Absolute Neutrophils (1.4-6.9) Segmented Neutrophils (36.-66.) % Lymphocytes (Manual) (24-44) % Monocytes (Manual) (0.0-12.0) % Eosinophils (Manual) (0.00-3.0) % Atypical Lymphocytes % PT (8.83-12.87) SECONDS INR (0.8-3.0) Sodium 140 (137-145) mmol/L Potassium 4.5 (3.5-5.1) mmol/L Chloride 104 (98-107) mmol/L Carbon Dioxide 28 (22-30) mmol/L Anion Gap 12.2 (5-15) MEQ/L BUN 9 (9-20) mg/dL Creatinine 1.19 (0.66-1.25) mg/dL Estimated GFR > 60.0 ML/MIN Glucose 102 (74-106) mg/dL Calcium 8.6 (8.4-10.2) mg/dL Total Bilirubin 2.80 H (0.2-1.3) mg/dL AST 215 H (17-59) U/L ALT 508 H (0-50) U/L Alkaline Phosphatase 196 H (38-126) U/L Troponin I (0.000-0.034) ng/mL Serum Total Protein 7.6 (6.3-8.2) g/dL Albumin 3.7 (3.5-5.0) g/dL Lipase (23-300) U/L Urine Color (YELLOW) Urine Appearance (CLEAR) Urine pH (5-6) Ur Specific [place] (1.005-1.025) Urine Protein (Negative) Urine Ketones (NEGATIVE) Urine Blood (0-5) Cecil/ul Urine Nitrite (NEGATIVE) Urine Bilirubin (NEGATIVE) Urine Urobilinogen (0-1) mg/dL Ur Leukocyte Esterase (NEGATIVE) Urine WBC (Auto) (0-5) /HPF Urine RBC (Auto) (0-2) /HPF U Epithel Cells (Auto) (FEW) /HPF Urine Bacteria (Auto) (NEGATIVE) /HPF Urine Mucus (Auto) (NEGATIVE) /HPF Urine Culture Reflexed (NO) Urine Glucose (NEGATIVE) mg/dL Urine Opiates Level (NEGATIVE) Ur Methadone (NEGATIVE) Urine Barbiturates (NEGATIVE) Ur Phencyclidine (PCP) (NEGATIVE) Urine Amphetamine (NEGATIVE) U Benzodiazepine Level (NEGATIVE) Urine Cocaine (NEGATIVE) Urine Marijuana (THC) (NEGATIVE) Monoscreen (Negative) Slides for Path Review - Radiology Impressions Radiology Exams & Impressions: Radiology Procedures Category Date Time Status ABDOMEN AND PELVIS W CONTRAST [CT] Stat Exams 11/28/18 10:56 Completed HIDA-GALL BLADDER [NUCMED] Routine Exams 11/29/18 08:00 Ordered Assessment/Plan (1) Fever Current Visit: Yes Status: Acute Qualifiers: Fever type: unspecified Qualified Code(s): R50.9 - Fever, unspecified Code(s): R50.9 - FEVER, UNSPECIFIED (2) Abdominal pain Current Visit: Yes Status: Acute Qualifiers: Abdominal location: right upper quadrant Qualified Code(s): R10.11 - Right upper quadrant pain Assessment & Plan: could be due to gallbladder or mono. HIDA this morning. If abn will consult surgery. Code(s): R10.9 - UNSPECIFIED ABDOMINAL PAIN (3) Elevated liver enzymes Current Visit: Yes Status: Acute Assessment & Plan: on recheck this morning, they are a bit lower but overall stable. Tbili a bit lower, from 3.7 to 2.8. Code(s): R74.8 - ABNORMAL LEVELS OF OTHER SERUM ENZYMES (4) Mononucleosis Current Visit: Yes Status: Acute Qualifiers: Infectious mononucleosis etiology: unspecified organism Infectious mononucleosis complication: other complications Qualified Code(s): B27.99 - Infectious mononucleosis, unspecified with other complication Assessment & Plan: could be causing the abd pain and elevated liver enzymes. Code(s): B27.90 - INFECTIOUS MONONUCLEOSIS, UNSPECIFIED WITHOUT COMPLICATION (5) Hepatosplenomegaly Current Visit: Yes Status: Acute Code(s): R16.2 - HEPATOMEGALY WITH SPLENOMEGALY, NOT ELSEWHERE CLASSIFIED
--- NOTE | 2018-11-29 14:30 | XRAY ---
Indication: Right upper quadrant pain. Nausea. Elevated liver enzymes. Gallbladder polyp on recent sonogram. Comparison: None Patient received 5.3 mCi technetium 99 Choletec. Immediate anterior planar imaging was performed for 60 minutes. Normal hepatic activity on the first image. Normal biliary activity within 20 minutes. Normal gallbladder and biliary to bowel activity within 30 minutes. Patient then received 1.9 g of IV CCK slowly. Patient's symptoms reproducible, graded 5 out of 10. Ejection fraction calculated 15%, low. Impression: 1. HIDA scan portion of the exam is normal. 2. Low ejection fraction 15%. Rule out chronic cholecystitis.
[2018-11-29 14:44] VITALS: BP 130/77; PULSE 75; O2SAT 96
--- NOTE | 2018-11-29 18:20 | PCM.DS ---
Discharge Summary Date of Admission: 11/28/18 13:15 Admitting Physician: LEXI ZAFAR Consults: Consults on Case 11/29/18 15:28 Consult Surgery ROUTINE Primary Care Provider: LITA HAMEED Allergies Allergies Sulfa (Sulfonamide Antibiotics) Allergy (Verified 11/28/18 13:19) unknown Hospital Summary - Hospital Course Hospital Course: is a 33 year old male pt of Dr. Stein who came to ER complaining of abd pain. Was found to be mono + and have elevated LFTs and bilirubin (Tbili 5.7 ; AST 241 and ALT 550). Ct nonacute, showed fatty liver. Recent GB u/s with polyp, no stones. He had been having abd pain for 2 weeks, epigastric, 8/10. some pain in L lower back. For 1 week fever up to 102.5 and night sweats. Has been afebrile throughout his stay here. LFTs the next morning are slightly lower at AST 215 and ALT 508. Tbili lower at 2.8. HIDA scan the next day with EF < 20%. Surgery was consulted and Dr. Iban Busch would like pt to have an MRCP. Pt tolerated supper and is still having some abdominal discomfort but nothing severe and would like to be discharged to home. - Vitals & Intake/Output Vital Signs: Vital Signs Temperature 98.7 F 11/29/18 15:52 Pulse Rate 75 11/29/18 15:52 Respiratory Rate 18 11/29/18 15:52 Blood Pressure 130/77 11/29/18 15:52 O2 Sat by Pulse Oximetry 96 11/29/18 15:52 Intake & Output: Intake & Output 11/27/18 11/28/18 11/29/18 11/30/18 11:59 11:59 11:59 11:59 Intake Total 2440 0 Balance 2440 0 Weight 91.626 kg 91.8 kg - Lab Result Diagrams: 11/29/18 07:30 11/29/18 07:30 Lab Results-Last 24 Hrs: Lab Results-Last 24 Hours 11/28/18 11/28/18 11/29/18 Range/Units 20:10 23:07 07:30 WBC 10.4 (4.0-10.5) K/mm3 RBC 4.41 (4.1-5.6) M/mm3 Hgb 12.8 (12.5-18.0) gm/dl Hct 39.5 L (42-50) % MCV 89.6 (78-100) fl MCH 29.0 (26-32) pg MCHC 32.4 (32-36) g/dl RDW 14.0 (11.5-14.0) % Plt Count 129 L (150-450) K/mm3 MPV 10.2 H (6-9.5) fl Segmented Neutrophils 24 L (36.-66.) % Lymphocytes (Manual) 67 H (24-44) % Monocytes (Manual) 1 (0.0-12.0) % Eosinophils (Manual) 1 (0.00-3.0) % Metamyelocytes 3 % Atypical Lymphocytes 4 % Platelet Estimate NORMAL (NORMAL) RBC Morphology NORMAL Sodium (137-145) mmol/L Potassium (3.5-5.1) mmol/L Chloride (98-107) mmol/L Carbon Dioxide (22-30) mmol/L Anion Gap (5-15) MEQ/L BUN (9-20) mg/dL Creatinine (0.66-1.25) mg/dL Estimated GFR ML/MIN Glucose (74-106) mg/dL Calcium (8.4-10.2) mg/dL Total Bilirubin (0.2-1.3) mg/dL AST (17-59) U/L ALT (0-50) U/L Alkaline Phosphatase (38-126) U/L Troponin I < 0.012 < 0.012 (0.000-0.034) ng/mL Serum Total Protein (6.3-8.2) g/dL Albumin (3.5-5.0) g/dL 11/29/18 Range/Units 07:30 WBC (4.0-10.5) K/mm3 RBC (4.1-5.6) M/mm3 Hgb (12.5-18.0) gm/dl Hct (42-50) % MCV (78-100) fl MCH (26-32) pg MCHC (32-36) g/dl RDW (11.5-14.0) % Plt Count (150-450) K/mm3 MPV (6-9.5) fl Segmented Neutrophils (36.-66.) % Lymphocytes (Manual) (24-44) % Monocytes (Manual) (0.0-12.0) % Eosinophils (Manual) (0.00-3.0) % Metamyelocytes % Atypical Lymphocytes % Platelet Estimate (NORMAL) RBC Morphology Sodium 140 (137-145) mmol/L Potassium 4.5 (3.5-5.1) mmol/L Chloride 104 (98-107) mmol/L Carbon Dioxide 28 (22-30) mmol/L Anion Gap 12.2 (5-15) MEQ/L BUN 9 (9-20) mg/dL Creatinine 1.19 (0.66-1.25) mg/dL Estimated GFR > 60.0 ML/MIN Glucose 102 (74-106) mg/dL Calcium 8.6 (8.4-10.2) mg/dL Total Bilirubin 2.80 H (0.2-1.3) mg/dL AST 215 H (17-59) U/L ALT 508 H (0-50) U/L Alkaline Phosphatase 196 H (38-126) U/L Troponin I (0.000-0.034) ng/mL Serum Total Protein 7.6 (6.3-8.2) g/dL Albumin 3.7 (3.5-5.0) g/dL - Radiology Exams Ordered Rad Exams-Entire Visit: Radiology Procedures Category Date Time Status ABDOMEN AND PELVIS W CONTRAST [CT] Stat Exams 11/28/18 10:56 Completed HEPATOBILIARY W/CCK [NUCMED] Routine Exams 11/29/18 08:00 Completed Discharge Exam General Appearance: no apparent distress, alert, other (exam done this morning.) Neurologic Exam: alert, cooperative Skin Exam: normal color, warm, dry, No rash Eye Exam: eyes nml inspection Ears, Nose, Throat Exam: moist mucous membranes Neck Exam: normal inspection Respiratory Exam: normal breath sounds, lungs clear, No crackles/rales, No rhonchi, No wheezing Cardiovascular Exam: regular rate/rhythm, normal heart sounds, No murmur Gastrointestinal/Abdomen Exam: soft, normal bowel sounds, tenderness (diffuse, but more tender in epigastrum and RUQ) Extremity Exam: normal inspection, No pedal edema, No swelling Back Exam: normal inspection, No rash Final Diagnosis/Problem List - Final Discharge Diagnosis/Problem (1) Fever Current Visit: Yes Status: Resolved Code(s): R50.9 - FEVER, UNSPECIFIED (2) Abdominal pain Current Visit: Yes Status: Acute Assessment & Plan: Improved in that he can tolerate po. May be due to mono, vs cholecystitis. Pt to have outpatient MRCP. F/u next week with PCP. Code(s): R10.9 - UNSPECIFIED ABDOMINAL PAIN (3) Elevated liver enzymes Current Visit: Yes Status: Acute Assessment & Plan: Stable; slightly lower today. Recheck CMP next week. Code(s): R74.8 - ABNORMAL LEVELS OF OTHER SERUM ENZYMES (4) Mononucleosis Current Visit: Yes Status: Acute Code(s): B27.90 - INFECTIOUS MONONUCLEOSIS , UNSPECIFIED WITHOUT COMPLICATION (5) Hepatosplenomegaly Current Visit: Yes Status: Acute Assessment & Plan: Likely due to mono but should be followed. Code(s): R16.2 - HEPATOMEGALY WITH SPLENOMEGALY, NOT ELSEWHERE CLASSIFIED - Discharge Disposition: Home, Self-Care Condition: Stable Prescriptions: Continue Escitalopram Oxalate [Lexapro] 20 mg PO HS Additional Instructions: MRCP scheduled for Monday at 9am. Nothing by mouth after midnight on 12/03/18 Follow up with: MELVIN STEIN MD [ACTIVE STAFF] - 1 Week
--- NOTE | 2018-11-30 08:09 | CONS ---
CONSULT DATE: 11/29/2018 REASON FOR CONSULT: Abdominal pain. HISTORY: This patient presents with a couple of weeks of abdominal pain, generalized fatigue, nausea and vomiting. The pain is in the right upper quadrant. The patient had been diagnosed with mono this admission. He was admitted yesterday. He has mainly pain in the right upper quadrant but also pain in the left flank. PAST MEDICAL HISTORY: Irritable bowel syndrome. PAST SURGICAL HISTORY: Hemorrhoids. Colonoscopy. MEDICATIONS: Lexapro. ALLERGIES: SULFA. SOCIAL HISTORY: Positive for occasional alcohol. No tobacco. FAMILY HISTORY: Dad with rectal cancer at age 45. REVIEW OF SYSTEMS: Twelve systems reviewed and negative except for in the history of present illness. PHYSICAL EXAMINATION: GENERAL: No acute distress. HEENT: Sclera very slightly icteric. Extraocular movements intact. NECK: Supple. No JVD. CHEST: Nonlabored breathing. ABDOMEN: Soft, nondistended, mild tenderness in the right upper quadrant. No guarding. NEURO: Awake, alert and oriented. PSYCH: Appropriate mood and affect. LAB DATA AND TESTS: Initial total bilirubin yesterday was 3.7 and today total bilirubin 2.8. Alkaline phosphatase 216 yesterday and 196 today. His ALT 550 and AST 241 yesterday and AST 215 and ALT 508 today. His international normalized ratio 1.0. He is positive for mono. His white blood cell count today is 10.7, hemoglobin 12.8, PLT 129,000. Creatinine 1.12. HIDA scan showed gallbladder filling with no findings of acute cholecystitis. Gallbladder ejection fraction is low at 15%. CT scan shows mesenteric adenitis. He did have an outpatient ultrasound on 11/23/2018 which showed tiny gallbladder polyps and a common bile duct measuring 3.8 mm. ASSESSMENT: 1) Mononucleosis with viral hepatitis. 2) Possible biliary dyskinesia. 3) Gallbladder polyps. PLAN: It seems that his jaundice is most likely from mono induced viral hepatitis. This should be self-limiting. It is very unclear if his right upper quadrant pain is just from the hepatitis from his mononucleosis or if he also has some element of biliary dyskinesia. We would recommend starting with MRCP to make sure that there is definitely no biliary cause of his jaundice. If the patient does not want to stay for MRCP it would be completely reasonable to have that done as an outpatient and to further decide whether to await resolution of his mono or to pursue cholecystectomy for possible biliary dyskinesia.
== END 2018-11-29 18:45 | disposition home or self-care (01) ==
LOC: ED 10:39 → MED SURG 13:15
PROVIDERS: ADMIT Family Medicine; ATTEND Family Medicine
DX: R50.9 Fever, unspecified (principal); R10.9 Unspecified abdominal pain; R74.8 Abnormal levels of other serum enzymes; B27.90 Infectious mononucleosis, unspecified without complication; R16.2 Hepatomegaly with splenomegaly, not elsewhere classified; R42 Dizziness and giddiness; B19.9 Unspecified viral hepatitis without hepatic coma; K82.4 Cholesterolosis of gallbladder; K92.1 Melena; F41.8 Other specified anxiety disorders
CPT/HCPCS: 36415; 74177; 78227; 80053; 80307; 81001; 83690; 84484; 85025; 85610; 86308; 93005; 96360; 96374; 96375; 99285; A9537; G0378; J2405; A9270-GY

== ENCOUNTER 2021-02-21 08:23 | Emergency (ER) | payer SELFPAY ==
[2021-02-21] MEDS ORDERED: Cleocin Phosphate IV 600 MG/4 ML IM STA (08:32)
[2021-02-21 08:36] VITALS: BP 146/91; PULSE 79; O2SAT 99
[2021-02-21] MEDS ORDERED: Cleocin Phosphate IV 600 MG/4 ML ONE (08:39)
--- NOTE | 2021-02-21 08:47 | ERPHSYRPT ---
- History of Present Illness Time Seen by Provider: 02/21/21 08:38 Source: patient Exam Limitations: no limitations Patient Subjective Stated Complaint: toothache, facial swelling Triage Nursing Assessment: pt to ED c/o L sided facial swelling and tooth ache onset 4 days ago. he was seen in [facility] care and given abx 2 days ago. 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 denies pain at this time. noted multi broken teeth in upper mouth. Physician History: Is a 35-year-old white male who presents with swelling of the left side of the face maxillary area for several days. He has multiple carious teeth and went to the urgent care where he was given an antibiotic that is taken twice a day and he believes it to be Augmentin. It has not seem to be helping although it has only been 24hours since he started the antibiotic. 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 He was encouraged to stay home and see a dentist. Timing/Duration: day(s) (4) Severity: moderate Modifying Factors: Improves With: eating Allergies/Adverse Reactions: Sulfa (Sulfonamide Antibiotics) Allergy (Verified 02/21/21 08:27) unknown Home Medications: Escitalopram Oxalate [Lexapro] 5 mg PO HS 04/20/17 [History] Hx Tetanus, Diphtheria Vaccination/Date Given: Yes Hx Influenza Vaccination/Date Given: No Travel Risk - International Travel Have you traveled outside of the country in past 3 weeks: No - Coronavirus Screening Are you exhibiting any of the following symptoms?: No Close contact with a COVID-19 positive Pt in past 14-21 Days: No - Vaccine Status Have you recieved a Covid-19 vaccination: No - Review of Systems Constitutional: No Fever, No Chills Eyes: No Symptoms Ears, Nose, & Throat: No Symptoms, Mouth Pain, Loose Teeth Respiratory: No Cough, No Dyspnea Cardiac: No Chest Pain, No Edema, No Syncope Abdominal/Gastrointestinal: No Abdominal Pain, No Nausea, No Vomiting, No Diarrhea Genitourinary Symptoms: No Dysuria Musculoskeletal: No Back Pain, No Neck Pain Skin: No Rash Neurological: No Dizziness, No Focal Weakness, No Sensory Changes Psychological: No Symptoms Endocrine: No Symptoms All Other Systems: Reviewed and Negative - Past Medical History Pertinent Past Medical History: Yes Neurological History: No Pertinent History ENT History: No Pertinent History Cardiac History: No Pertinent History Respiratory History: No Pertinent History Endocrine Medical History: No Pertinent History Musculoskeletal History: No Pertinent History GI Medical History: No Pertinent History History: No Pertinent History Psycho-Social History: Anxiety Male Reproductive Disorders: No Pertinent History Other Medical History: low testosterone, kidney stones - Past Surgical History Past Surgical History: Yes Neuro Surgical History: No Pertinent History Cardiac: No Pertinent History Respiratory: No Pertinent History Gastrointestinal: No Pertinent History Genitourinary: No Pertinent History Musculoskeletal: No Pertinent History Male Surgical History: No Pertinent History Other Surgical History: hemorrhoidectomy - Social History Smoking Status: Never smoker Exposure to second hand smoke: No Drug Use: none Patient Lives Alone: Yes - Nursing Vital Signs Nursing Vital Signs: Initial Vital Signs Temperature 96.7 F 02/21/21 08:27 Pulse Rate 79 02/21/21 08:27 Respiratory Rate 16 02/21/21 08:27 Blood Pressure 146/91 02/21/21 08:27 O2 Sat by Pulse Oximetry 99 02/21/21 08:27 Pain Scale Pain Intensity 0 - Physical Exam General Appearance: no apparent distress, alert Eye Exam: PERRL/EOMI, eyes nml inspection Ears, Nose, Throat Exam: normal ENT inspection, TMs normal, pharynx normal, moist mucous membranes, other (Oral cavity is examined and there are multiple carious teeth especially in the maxillary area teeth are eroded to the gumline.) Neck Exam: normal inspection, non-tender, supple, full range of motion Respiratory Exam: normal breath sounds, No respiratory distress Cardiovascular Exam: regular rate/rhythm, normal peripheral pulses Gastrointestinal/Abdomen Exam: soft, normal bowel sounds, No tenderness, No mass Back Exam: normal inspection, normal range of motion, No CVA tenderness, No vertebral tenderness Extremity Exam: normal inspection, normal range of motion, pelvis stable Neurologic Exam: alert, oriented x 3, cooperative, normal mood/affect, nml cerebellar function, nml station & gait, sensation nml, No motor deficits Skin Exam: normal color, warm, dry, No rash Lymphatic Exam: No adenopathy SpO2: 99 - Course Nursing assessment & vital signs reviewed: Yes Ordered Tests: Medication Summary Discontinued Medications Generic Name Dose Route Start Last Admin Trade Name Freq PRN Reason Stop Dose Admin Clindamycin Phosphate 600 mg 02/21/21 08:32 Cleocin Phosphate Iv 600 Mg/4 Ml IM 02/21/21 08:33 ONCE STA - Progress Progress: unchanged - Departure Departure Disposition: Home Clinical Impression: Dental abscess Condition: Stable Critical Care Time: No Referrals: LITA HAMEDE NP [Primary Care Provider] - Instructions: Tooth Abscess (DC), Tooth Decay, Adult (DC), Dental Pain (DC) Additional Instructions: See dentist as soon as possible Prescriptions: clindamycin HCL [Cleocin HCl] 300 mg PO TID 7 Days #21 capsule Lidocaine [Topicaine] 10 gm TP Q2H/PRN PRN 7 Days #1 tube PRN Reason: Pain
== END 2021-02-21 09:00 | disposition home or self-care (01) ==
LOC: ED 08:23
DX: K04.7 Periapical abscess without sinus (principal)
CPT/HCPCS: 96372; 99283

== ENCOUNTER 2022-10-15 11:58 | Emergency (ER) | payer BC ==
[2022-10-15] MEDS ORDERED: Sodium Chloride 0.9% 1000 ML 1,000 ML IV STA (12:03)
[2022-10-15] MEDS ORDERED: Sodium Chloride 0.9% 1000 ML 1,000 ML ONE (12:14)
[2022-10-15 12:18] LABS: Absolute Neutrophil Ct (ANC) 4.78 x10^3/uL (1.4-6.9); BASOPHIL % 0.5 % (0.0-0.4); Basophil (Absolute #) 0.04 x10^3/uL (0-0.4); Eosinophil (Absolute #) 0.33 x10^3/uL (0-0.5); Hematocrit 43.1 % (42-50); Hemoglobin 14.2 g/dL (12.5-18.0); IMMATURE GRAN # 0.03 x10^3u/L (0.00-0.03); IMMATURE GRAN % 0.4 % (0.00-0.4); Lymphocyte (Absolute #) 2.44 x10^3/uL (1.0-4.6); Lymphocytes % 29.3 % (24.0-44.0); Mean Cell Volume 89.4 fL (78-100); Mean Corpuscular Hemoglobin 29.5 pg (26-32); Mean Corpuscular Hgb Concent. 32.9 g/dL (32-36); Mean Platelet Volume 9.8 fL (7.5-11.0); Monocytes % 8.4 % (0.0-12.0); Neutrophil % 57.4 % (36.0-66.0); Platelet Count 214 x10^3/uL (150-450); Red Blood Count 4.82 x10^6/uL (4.1-5.6); Red Cell Distribution Width 12.3 % (11.5-14.0); White Blood Count 8.3 x10^3/uL (4.0-10.5)
--- NOTE | 2022-10-15 12:19 | ERPHSYRPT ---
- History of Present Illness Time Seen by Provider: 10/15/22 12:10 Historian: patient Exam Limitations: no limitations Patient Subjective Stated Complaint: Patient c/o chest pain that radiates into his left shoulder and down his arm into his hand. Patient does not recall what he was doing when the pain initially started. The pain is intermittent and has been going on for a few days. Patient states that his left hand feels "tingly like it's asleep" at times. Triage Nursing Assessment: Patient ambulated back to ER. No SOB noted. He is alert and oriented. SKin tone normal. No cough. No edema. PALMA WNL. Physician History: Patient is a 37-year-old white male who presents with a 3-day history of pleuritic type pain in his left upper anterior chest it does tend to radiate into the left shoulder and down the left upper extremity with some tingling occasionally in the fingers. Patient denies any shortness of breath he has had some slight nausea no vomiting and has had some diaphoresis but primarily at night. 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 Review of his records indicate that he had an echocardiogram in November 2019 which was normal he also had pulmonary functions at that time which were normal the original echo done by Dr. Escobar will the pulmonary functions by Dr. Young. His risk factors are all negative he does not smoke family history is negative cholesterol negative diabetes negative and hypertension negative Timing/Duration: day(s) (3), intermittent Activities at Onset: activity Quality: sharpness Location: other (Left upper anterior chest) Chest Pain Radiation: arm (Left arm) Severity of Pain-Max: moderate Severity of Pain-Current: mild Modifying Factors: Improves With: breathing, coughing Associated Symptoms: hurts to breathe Prior Chest Pain/Cardiac Workup: echocardiography, stress test (Done by Dr. Odell 2016) Nitro Today/Relief: no nitro taken today Aspirin Treatment Today: 325 mg x 1 Allergies/Adverse Reactions: Sulfa (Sulfonamide Antibiotics) Allergy (Verified 10/15/22 12:03) unknown Home Medications: Escitalopram Oxalate [Lexapro] 5 mg PO HS 04/20/17 [History] Hx Tetanus, Diphtheria Vaccination/Date Given: Yes Hx Influenza Vaccination/Date Given: No Hx Pneumococcal Vaccination/Date Given: No Immunizations Up to Date: Yes Travel Risk - International Travel Have you traveled outside of the country in past 3 weeks: No - Coronavirus Screening Are you exhibiting any of the following symptoms?: No Close contact with a COVID-19 positive Pt in past 14-21 Days: No - Vaccine Status Have you recieved a Covid-19 vaccination: No - Review of Systems Constitutional: No Fever, No Chills Eyes: No Symptoms Ears, Nose, & Throat: No Symptoms Respiratory: No Cough Cardiac: Chest Pain (Pleuritic), No Edema, No Syncope Abdominal/Gastrointestinal: No Abdominal Pain, No Nausea, No Vomiting, No Diarrhea Genitourinary Symptoms: No Dysuria Musculoskeletal: No Back Pain, No Neck Pain Skin: No Rash Neurological: No Dizziness, No Focal Weakness, No Sensory Changes Psychological: No Symptoms Endocrine: No Symptoms All Other Systems: Reviewed and Negative - Past Medical History Pertinent Past Medical History: Yes Neurological History: No Pertinent History ENT History: No Pertinent History Cardiac History: No Pertinent History Respiratory History: No Pertinent History Endocrine Medical History: No Pertinent History Musculoskeletal History: No Pertinent History GI Medical History: No Pertinent History History: No Pertinent History Psycho-Social History: Anxiety Male Reproductive Disorders: No Pertinent History Other Medical History: low testosterone, kidney stones - Past Surgical History Past Surgical History: Yes Neuro Surgical History: No Pertinent History Cardiac: No Pertinent History Respiratory: No Pertinent History Gastrointestinal: No Pertinent History Genitourinary: No Pertinent History Musculoskeletal: No Pertinent History Male Surgical History: No Pertinent History Other Surgical History: hemorrhoidectomy - Social History Smoking Status: Never smoker Exposure to second hand smoke: No Drug Use: none Patient Lives Alone: No (son) - Nursing Vital Signs Nursing Vital Signs: Initial Vital Signs Temperature 99.2 F 10/15/22 12:04 Pulse Rate 87 10/15/22 12:04 Respiratory Rate 21 10/15/22 12:04 Blood Pressure 168/101 10/15/22 12:04 O2 Sat by Pulse Oximetry 99 10/15/22 12:04 Pain Scale Pain Intensity 0 - Physical Exam General Appearance: mild distress, alert Eye Exam: PERRL/EOMI, eyes nml inspection Ears, Nose, Throat Exam: normal ENT inspection, moist mucous membranes Neck Exam: normal inspection, non-tender, supple, full range of motion Respiratory Exam: normal breath sounds, lungs clear, No respiratory distress Cardiovascular Exam: regular rate/rhythm, normal heart sounds Gastrointestinal/Abdomen Exam: soft, No tenderness, No mass Back Exam: normal inspection, No CVA tenderness, No vertebral tenderness Extremity Exam: normal inspection, normal range of motion Neurologic Exam: alert, oriented x 3, cooperative, normal mood/affect, sensation nml, No motor deficits Skin Exam: normal color, warm, dry SpO2: 99 - Course Nursing assessment & vital signs reviewed: Yes EKG Interpreted by Me: RATE (83), NORMAL AXIS, NORMAL INTERVALS, NORMAL QRS, NORMAL ST-T - Radiology Exams Chest X-ray Interpretation: Interpreted by me, Negative Ordered Tests: Active Orders 24 hr Category Date Time Status Strapper Operator STAT Care 10/15/22 12:04 Active EKG-ER Only STAT Care 10/15/22 12:03 Active IV Insertion STAT Care 10/15/22 12:03 Active CHEST 1 VIEW (PORTABLE) Stat Exams 10/15/22 12:04 Taken CBC W DIFF Stat Lab 10/15/22 12:17 Completed CMP Stat Lab 10/15/22 12:17 Completed D-DIMER QUANTITATIVE Stat Lab 10/15/22 12:17 Completed NT PRO BNP Stat Lab 10/15/22 12:17 Completed PROTIME WITH INR Stat Lab 10/15/22 12:17 Completed PTT Stat Lab 10/15/22 12:17 Completed SED RATE [Erythrocyte Sedimentation Rate] Stat Lab 10/15/22 12:17 Completed TROPONIN Q4H Lab 10/15/22 12:17 Completed TROPONIN Q4H Lab 10/15/22 16:15 Ordered TROPONIN Q4H Lab 10/15/22 20:15 Ordered UA W/RFX UR CULTURE Stat Lab 10/15/22 13:04 Ordered Medication Summary Discontinued Medications Generic Name Dose Route Start Last Admin Trade Name Freq PRN Reason Stop Dose Admin Sodium Chloride 1,000 mls @ 999 mls/hr 10/15/22 12:03 10/15/22 12:16 Sodium Chloride 0.9% 1000 Ml IV 10/15/22 13:03 999 mls/hr .Q1H1M STA Administration Sodium Chloride Confirm 10/15/22 12:14 Sodium Chloride 0.9% 1000 Ml Administered 10/15/22 12:15 Dose 1,000 mls @ ud .ROUTE .STK-MED ONE Lab/Rad Data: Laboratory Result Diagrams 10/15/22 12:17 10/15/22 12:17 Laboratory Results 0210/15/22 10/15/22 Range/Units 12:17 12:17 12:17 WBC (4.0-10.5) x10^3/uL RBC (4.1-5.6) x10^6/uL Hgb (12.5-18.0) g/dL Hct (42-50) % MCV (78-100) fL MCH (26-32) pg MCHC (32-36) g/dL RDW (11.5-14.0) % Plt Count (150-450) x10^3/uL MPV (7.5-11.0) fL Gran % (36.0-66.0) % Immature Gran % (Auto) (0.00-0.4) % Nucleat RBC Rel Count (0.00-0.1) % Eos # (Auto) (0-0.5) x10^3/uL Immature Gran # (Auto) (0.00-0.03) x10^3u/L Absolute Lymphs (auto) (1.0-4.6) x10^3/uL Absolute Monos (auto) (0.0-1.3) x10^3/uL Absolute Nucleated RBC (0.00-0.01) x10^3u/L Lymphocytes % (24.0-44.0) % Monocytes % (0.0-12.0) % Eosinophils % (0.00-5.0) % Basophils % (0.0-0.4) % Absolute Granulocytes (1.4-6.9) x10^3/uL Basophils # (0-0.4) x10^3/uL ESR 14 (0-15) mm/hr PT 10.9 (9.4-12.5) SECONDS INR 1.03 (0.8-3.0) APTT 26.6 (25.1-36.5) SECONDS D-Dimer < 0.19 (0.0-0.50) mg/L Sodium (137-145) mmol/L Potassium (3.5-5.1) mmol/L Chloride (98-107) mmol/L Carbon Dioxide (22-30) mmol/L Anion Gap (5-15) MEQ/L BUN (9-20) mg/dL Creatinine (0.66-1.25) mg/dL Estimated GFR ML/MIN Glucose (74-106) mg/dL Calcium (8.4-10.2) mg/dL Total Bilirubin (0.2-1.3) mg/dL AST (17-59) U/L ALT (0-50) U/L Alkaline Phosphatase (38-126) U/L Troponin I < 0.012 (0.000-0.034) ng/mL NT-Pro-B Natriuret Pep (0-450) pg/mL Serum Total Protein (6.3-8.2) g/dL Albumin (3.5-5.0) g/dL 10/15/22 10/15/22 Range/Units 12:17 12:17 WBC 8.3 (4.0-10.5) x10^3/uL RBC 4.82 (4.1-5.6) x10^6/uL Hgb 14.2 (12.5-18.0) g/dL Hct 43.1 (42-50) % MCV 89.4 (78-100) fL MCH 29.5 (26-32) pg MCHC 32.9 (32-36) g/dL RDW 12.3 (11.5-14.0) % Plt Count 214 (150-450) x10^3/uL MPV 9.8 (7.5-11.0) fL Gran % 57.4 (36.0-66.0) % Immature Gran % (Auto) 0.4 (0.00-0.4) % Nucleat RBC Rel Count 0.0 (0.00-0.1) % Eos # (Auto) 0.33 (0-0.5) x10^3/uL Immature Gran # (Auto) 0.03 (0.00-0.03) x10^3u/L Absolute Lymphs (auto) 2.44 (1.0-4.6) x10^3/uL Absolute Monos (auto) 0.70 (0.0-1.3) x10^3/uL Absolute Nucleated RBC 0.00 (0.00-0.01) x10^3u/L Lymphocytes % 29.3 (24.0-44.0) % Monocytes % 8.4 (0.0-12.0) % Eosinophils % 4.0 (0.00-5.0) % Basophils % 0.5 (0.0-0.4) % Absolute Granulocytes 4.78 (1.4-6.9) x10^3/uL Basophils # 0.04 (0-0.4) x10^3/uL ESR (0-15) mm/hr PT (9.4-12.5) SECONDS INR (0.8-3.0) APTT (25.1-36.5) SECONDS D-Dimer (0.0-0.50) mg/L Sodium 139 (137-145) mmol/L Potassium 4.1 (3.5-5.1) mmol/L Chloride 105 (98-107) mmol/L Carbon Dioxide 27 (22-30) mmol/L Anion Gap 10.8 (5-15) MEQ/L BUN 9 (9-20) mg/dL Creatinine 0.93 (0.66-1.25) mg/dL Estimated GFR > 60.0 ML/MIN Glucose 97 (74-106) mg/dL Calcium 8.3 L (8.4-10.2) mg/dL Total Bilirubin 0.60 (0.2-1.3) mg/dL AST 85 H (17-59) U/L ALT 119 H (0-50) U/L Alkaline Phosphatase 78 (38-126) U/L Troponin I (0.000-0.034) ng/mL NT-Pro-B Natriuret Pep 13.1 (0-450) pg/mL Serum Total Protein 7.8 (6.3-8.2) g/dL Albumin 4.4 (3.5-5.0) g/dL - Progress Progress: improved Air Movement: good Blood Culture(s) Obtained: No Antibiotics given: No Medical Desision Making - External Record(s) Reviewed Records reviewed as a part of evaluation & management: Clinic (Clinic notes from [address] Dominique Odell all show stress test echocardiogram and pulmonary functions to be normal.) - Discussion of managment Reviewed:: Test results (Results reviewed and discussed with the patient patient will follow-up for additional evaluation if the treatment plan does not relieve the discomfort.) - Diagnostic Testing Diagnostic Testing: Diagnostic tests were ordered,analyzed, and reviewed by me and used in my medical decision making for this patient. Radiologic studies (if ordered) were read by me initially then discussed with the radiologist . - Risk of complications Low Risk: Low risk of morbidity from additional dx testing or treatment - Departure Departure Disposition: Home Clinical Impression: Pleuritic chest pain Condition: Stable Critical Care Time: No Referrals: LITA HAMEED NP [Primary Care Provider] - Follow up/PCP as directed Instructions: Chest Pain (DC) Prescriptions: Diclofenac Sodium 50 mg [Voltaren 50 mg] 50 mg PO TID 15 Days #45 tablet
[2022-10-15 12:36] LABS: D-DIMER QUANTITATIVE < 0.19 mg/L (0.0-0.50); INR 1.03 (0.8-3.0); PROTIME 10.9 SECONDS (9.4-12.5); PTT 26.6 SECONDS (25.1-36.5)
[2022-10-15 12:42] LABS: ALBUMIN 4.4 g/dL (3.5-5.0); ALKALINE PHOSPHATASE 78 U/L (38-126); ANION GAP 10.8 MEQ/L (5-15); BLOOD UREA NITROGEN 9 mg/dL (9-20); CHLORIDE 105 mmol/L (98-107); Calcium 8.3 mg/dL (8.4-10.2); Carbon Dioxide 27 mmol/L (22-30); Creatinine 1 0.93 mg/dL (0.66-1.25); EST GLOMERULAR FILTRATION RATE > 60.0 ML/MIN; Glucose 97 mg/dL (74-106); NT PRO BNP 13.1 pg/mL (0-450); Potassium 4.1 mmol/L (3.5-5.1); SGOT/AST 85 U/L (17-59); SGPT/ALT 119 U/L (0-50); SODIUM 139 mmol/L (137-145); Total Protein 7.8 g/dL (6.3-8.2)
[2022-10-15 13:19] LABS: Appearance Clear (Clear); Bilirubin Negative (Negative); Blood Negative (Negative); Glucose, Urine Negative (Negative); Ketones Negative (Negative); Leukocyte Esterase Negative (Negative); Nitrite Negative (Negative); Protein,Urine Dip Negative (Negative); Urobilinogen 0.2 mg/dL (0.2)
[2022-10-15 13:36] LABS: Bacteria None Seen /HPF (None Seen); Epithelial Cells None Seen /HPF (None Seen); Hyaline Casts NONE SEEN /LPF (0-2); RBC 0-2 /HPF (0-5); WBC 0-2 /HPF (0-5)
[2022-10-15 13:37] LABS: ADD URINE CULTURE? NO (NO)
[2022-10-15 13:39] VITALS: BP 129/81; PULSE 84; O2SAT 96
--- NOTE | 2022-10-15 18:56 | XRAY ---
Indication: Left chest pain. Comparison: April 21, 2017 Portable apical lordotic chest again demonstrates normal heart, lungs, and bony thorax.
== END 2022-10-15 13:48 | disposition home or self-care (01) ==
LOC: ED 11:58
DX: R07.81 Pleurodynia (principal); Z79.899 Other long term (current) drug therapy; Z28.310 Unvaccinated for COVID-19
CPT/HCPCS: 36000; 36415; 71045; 80053; 81001; 83880; 84484; 85025; 85379; 85610; 85652; 85730; 86140; 93005; 93041; 99284